=== PATIENT | male | born 1960 | race Caucasian/White ===

== ENCOUNTER → 2017-02-10 | Outpatient (CLI) | payer OTHER ==
[2017-02-10 17:54] LABS: ALT 38 U/L (21-72); AST 21 U/L (17-59); Alkaline Phosphatase 58 U/L (38-126); Anion Gap 9 mmol/L; Blood Urea Nitrogen 19 mg/dL (9-20); Calcium 9.1 mg/dL (8.4-10.2); Carbon Dioxide 27 mmol/L (22-30); Chloride 98 mmol/L (98-107); Cholesterol 199 mg/dL (<200); Glucose 178 mg/dL (74-99); HDL Cholesterol 61 mg/dL (40-60); Non-African American GFR(MDRD) >60 (>60 ml/min/1.73 sqM); Potassium 4.1 mmol/L (3.5-5.1); Sodium 134 mmol/L (137-145); Total Bilirubin 0.7 mg/dL (0.2-1.3); Total Protein 6.9 g/dL (6.3-8.2)
[2017-02-11 01:11] LABS: Urine Creatinine 54.1 mg/dL
== END | disposition home or self-care (01) ==
LOC: LABWHC1 16:58
PROVIDERS: ATTEND Internal Medicine Endocrinology, Diabetes & Metabolism
DX: E11.65 Type 2 diabetes mellitus with hyperglycemia (principal)
CPT/HCPCS: 36415; 80053; 80061; 82043; 82570; 84443; 84681

== ENCOUNTER → 2017-11-14 | Outpatient (CLI) | payer OTHER ==
[2017-11-14 09:43] LABS: ALT 53 U/L (21-72); AST 25 U/L (17-59); Albumin 4.7 g/dL (3.5-5.0); Alkaline Phosphatase 43 U/L (38-126); Anion Gap 12 mmol/L; Blood Urea Nitrogen 21 mg/dL (9-20); Calcium 9.2 mg/dL (8.4-10.2); Carbon Dioxide 24 mmol/L (22-30); Chloride 102 mmol/L (98-107); Cholesterol 175 mg/dL (<200); Glucose 184 mg/dL (74-99); HDL Cholesterol 62 mg/dL (40-60); LDL Cholesterol,Calculated 99 mg/dL (0-99); Potassium 4.6 mmol/L (3.5-5.1); Sodium 138 mmol/L (137-145); Total Protein 7.2 g/dL (6.3-8.2); Triglycerides 69 mg/dL (<150)
[2017-11-14 19:18] LABS: Hemoglobin A1C 8.1 % (4.0-6.0)
== END | disposition home or self-care (01) ==
LOC: LABWHC1 08:03
PROVIDERS: ATTEND Internal Medicine Endocrinology, Diabetes & Metabolism
DX: E11.65 Type 2 diabetes mellitus with hyperglycemia (principal)
CPT/HCPCS: 36415; 80053; 80061; 82043; 82570; 83036; 84681

== ENCOUNTER 2021-12-01 07:28 | Inpatient (IN) | payer BC, OTHER ==
[2021-12-01] MEDS ORDERED: ASPIRIN 81 MG PO STA (07:40)
[2021-12-01] MEDS ORDERED: NITROGLYCERIN SL TABS 0.4 MG TAB SUBLINGUAL STA (07:40)
[2021-12-01] MEDS ORDERED: NITROGLYCERIN OINT 1 INCH/GM PACKET TOPICAL STA (07:40)
[2021-12-01] MEDS ORDERED: LORazepam 2 MG/ML INJ IV STA (07:45)
--- NOTE | 2021-12-01 07:53 | ED ---
General Adult HPI - General Chief complaint: Chest Pain Stated complaint: Chest Pressure, SOB Time Seen by Provider: 12/01/21 07:30 Source: patient, RN notes reviewed, old records reviewed Mode of arrival: ambulatory Limitations: no limitations - History of Present Illness Initial comments: This is a 61-year-old male who presents emergency department with past medical history significant for diabetes and has a family history for heart disease. Patient comes in stating he's been having intermittent chest pain all week it's a squeezing tightness in the center of his chest hasn't lasted that long until last night. Patient states he woke up a couple times with this significant tightness and then when he woke up at 7:00 it was more significant and it is still ongoing. Patient denies any radiation of the pain. Patient denies any shortness of breath or difficulty breathing. Patient denies any diaphoretic episodes. Patient has any nausea. Patient denies any abdominal pain. Patient states took Tums and it had no effect. Patient denies any recent fever chills or cough per patient denies any similar episodes in the past. - Related Data Allergies Allergy/AdvReac Type Severity Reaction Status Date / Time No Known Allergies Allergy Verified 12/01/21 07:33 Review of Systems ROS Statement: Those systems with pertinent positive or pertinent negative responses have been documented in the HPI. ROS Other: All systems not noted in ROS Statement are negative. Past Medical History Past Medical History: Diabetes Mellitus History of Any Multi-Drug Resistant Organisms: None Reported Past Surgical History: Orthopedic Surgery Additional Past Surgical History / Comment(s): elbow Past Psychological History: No Psychological Hx Reported Smoking Status: Former smoker Past Alcohol Use History: None Reported Past Drug Use History: None Reported General Exam - General Exam Comments Initial Comments: GENERAL: Patient is well-developed and well-nourished. Patient is nontoxic and well- hydrated and is in mild distress. ENT: Neck is soft and supple. No significant lymphadenopathy is noted. Oropharynx is clear. Moist mucous membranes. Neck has full range of motion without eliciting any pain. EYES: The sclera were anicteric and conjunctiva were pink and moist. Extraocular movements were intact and pupils were equal round and reactive to light. Eyelids were unremarkable. PULMONARY: Unlabored respirations. Good breath sounds bilaterally. No audible rales rhonchi or wheezing was noted. CARDIOVASCULAR: There is a regular rate and rhythm without any murmurs gallops or rubs. ABDOMEN: Soft and nontender with normal bowel sounds. SKIN: Skin is clear with no lesions or rashes and otherwise unremarkable. NEUROLOGIC: Patient is alert and oriented x3. Cranial nerves II through XII are grossly intact. Motor and sensory are also intact. Normal speech, volume and content. Symmetrical smile. MUSCULOSKELETAL: Normal extremities with adequate strength and full range of motion. LYMPHATICS: No significant lymphadenopathy is noted PSYCHIATRIC: Normal psychiatric evaluation. Limitations: no limitations Course Vital Signs 12/01/21 12/01/21 12/01/21 07:30 08:16 08:31 Temperature 98.1 F 98.1 F Pulse Rate 88 51 L 73 Respiratory 16 16 24 Rate Blood Pressure 162/101 112/75 129/84 O2 Sat by Pulse 96 96 97 Oximetry 12/01/21 12/01/21 08:41 08:49 Temperature Pulse Rate 41 L 73 Respiratory 22 18 Rate Blood Pressure 129/84 121/75 O2 Sat by Pulse 98 97 Oximetry Medical Decision Making - Medical Decision Making EKG shows sinus rhythm at 73 bpm IA interval 248 QRS is 96 QT interval 352 QTC is 377 per patient's EKG shows no ST segment elevation or depression. Patient started having more symptoms became diaphoretic and a repeat EKG was done patient's EKG shows sinus bradycardia at 42 bpm IA interval 160 QRS is 102 QT interval 420 QTC is 359. Patient's EKG showed ST segment elevation in precordial leads V1 through V5 as well as 1 and aVL. Immediately after this EKG a STEMI was called. Dr. Gray came to the emergency department and saw the p atient personally. A repeat EKG was done shows sinus rhythm at 74 bpm IA interval 153 QRSs 120 QT i ntervals 369 QTC is 396. Patient's EKG continues to show ST segment elevation in precordial leads V1 through V5 in [address] segment depression in II, III, and F aVF. Patient was given heparin bolus emergency department as well as Lipitor multiple doses of nitroglycerin and then started on nitroglycerin drip. Patient's pain remained at 10 and patient was given Dilaudid 0.5 mg 2. I spoke with Dr. carvajal he agreed to admit the patient admitted the patient wrote admitting orders. - Lab Data Result diagrams: 12/01/21 07:49 07/03/22 07:49 Lab Results 12/01/21 12/01/21 12/01/21 Range/Units 07:49 07:49 07:49 WBC 7.8 (3.8-10.6) k/uL RBC 6.10 H (4.30-5.90) m/uL Hgb 20.0 H* (13.0-17.5) gm/dL Hct 57.8 H* (39.0-53.0) % MCV 94.8 (80.0-100.0) fL MCH 32.8 (25.0-35.0) pg MCHC 34.6 (31.0-37.0) g/dL RDW 12.5 (11.5-15.5) % Plt Count 181 (150-450) k/uL MPV 6.3 Neutrophils % 68 % Lymphocytes % 19 % Monocytes % 7 % Eosinophils % 2 % Basophils % 1 % Neutrophils # 5.3 (1.3-7.7) k/uL Lymphocytes # 1.5 (1.0-4.8) k/uL Monocytes # 0.5 (0-1.0) k/uL Eosinophils # 0.2 (0-0.7) k/uL Basophils # 0.0 (0-0.2) k/uL Sodium 136 L (137-145) mmol/L Potassium 4.4 (3.5-5.1) mmol/L Chloride 101 (98-107) mmol/L Carbon Dioxide 26 (22-30) mmol/L Anion Gap 9 mmol/L BUN 15 (9-20) mg/dL Creatinine 1.06 (0.66-1.25) mg/dL Est GFR (CKD-EPI)AfAm 88 (>60 ml/min/1.73 sqM) Est GFR (CKD-EPI)NonAf 76 (>60 ml/min/1.73 sqM) Glucose 239 H (74-99) mg/dL Calcium 9.1 (8.4-10.2) mg/dL Magnesium 2.0 (1.6-2.3) mg/dL Total Bilirubin 1.0 (0.2-1.3) mg/dL AST 23 (17-59) U/L ALT 28 (4-49) U/L Alkaline Phosphatase 52 (38-126) U/L Troponin I 0.222 H* (0.000-0.034) ng/mL Total Protein 7.4 (6.3-8.2) g/dL Albumin 4.5 (3.5-5.0) g/dL Critical Care Time Critical Care Time: Yes Total Critical Care Time: 45 Disposition Clinical Impression: ST elevation myocardial infarction (STEMI) Disposition: ADMITTED IP TO THIS [facility] Time of Disposition: 09:49
[2021-12-01 08:03] LABS: Basophils % (A) 1 %; Eosinophils # (A) 0.2 k/uL (0-0.7); Eosinophils % (A) 2 %; Lymphocytes # (A) 1.5 k/uL (1.0-4.8); Lymphocytes % (A) 19 %; MCH 32.8 pg (25.0-35.0); MCHC 34.6 g/dL (31.0-37.0); MCV 94.8 fL (80.0-100.0); Mean Platelet Volume 6.3; Monocytes # (A) 0.5 k/uL (0-1.0); Monocytes % (A) 7 %; Neutrophils # (A) 5.3 k/uL (1.3-7.7); Neutrophils % (A) 68 %; Platelet Count 181 k/uL (150-450); RDW 12.5 % (11.5-15.5); WBC 7.8 k/uL (3.8-10.6)
[2021-12-01 08:07] LABS: HCT 57.8 % (39.0-53.0)
[2021-12-01 08:10] LABS: Albumin 4.5 g/dL (3.5-5.0); Calcium 9.1 mg/dL (8.4-10.2); Potassium 4.4 mmol/L (3.5-5.1); Total Protein 7.4 g/dL (6.3-8.2)
--- NOTE | 2021-12-01 08:18 | XR ---
EXAMINATION TYPE: XR chest 2V DATE OF EXAM: 12/01/2021 7:54 AM COMPARISON: Chest radiographs from TECHNIQUE: XR chest 2V Frontal and lateral views of the chest. CLINICAL INDICATION:Male, 61 years old with history of Chest Pain; FINDINGS: Lungs/Pleura: There is no evidence of pleural effusion, focal consolidation, or pneumothorax. Pulmonary vascularity: Unremarkable. Heart/mediastinum: Cardiomediastinal silhouette is unremarkable. Musculoskeletal: No acute osseous pathology. IMPRESSION: No acute cardiopulmonary disease/process.
[2021-12-01] MEDS ORDERED: SODIUM CHLORIDE 0.9% 1,000 ML IV STA (08:29)
[2021-12-01] MEDS ORDERED: ATORVASTATIN 80 MG TAB PO STA (08:30)
[2021-12-01] MEDS ORDERED: HEPARIN SODIUM 1,000 UN/ML (10ML VL) IV ONE (08:30)
[2021-12-01] MEDS: HYDROmorphone 0.5 MG/0.5 ML SYRINGE IVP STA ×2 (08:37→08:47)
[2021-12-01] MEDS ORDERED: NITROGLYCERIN SL TABS 0.4 MG TAB SUBLINGUAL PRN ×2 (08:39→10:31)
[2021-12-01] MEDS ORDERED: NITROGLYCERIN-D5W PMX 50 MG in DEXTROSE/WATER 1 250ML.BAG IV ONE (08:45)
[2021-12-01] MEDS ORDERED: IV FLUID CONTINUATION 1,000 ML IV ONE (08:55)
[2021-12-01] MEDS ORDERED: VERAPAMIL 2.5 MG/ML 2 ML AMP ONE (09:03)
[2021-12-01] MEDS ORDERED: fentaNYL (PF) 50 MCG/ML 2 ML AMP ONE (09:03)
[2021-12-01] MEDS ORDERED: fentaNYL (PF) 50 MCG/ML 2 ML AMP IV ONE (09:04)
[2021-12-01] MEDS ORDERED: LIDOCAINE 1% INJ 10MG/ML (5 ML VIAL-PF) SQ ONE (09:05)
[2021-12-01] MEDS ORDERED: VERAPAMIL SYRINGE (5 MG/10 ML) INTRAARTER ONE (09:07)
[2021-12-01] MEDS ORDERED: HEPARIN SODIUM 1,000 UN/ML (10ML VL) ONE (09:10)
[2021-12-01] MEDS: HEPARIN SODIUM 1,000 UN/ML (10ML VL) IV ONE ×2 (09:11→09:25)
[2021-12-01] MEDS ORDERED: PRASUGREL 10 MG TAB PO ONE (09:21)
[2021-12-01] MEDS ORDERED: IOPAMIDOL-370 125ML BTL INJ ONE (09:30)
[2021-12-01] MEDS ORDERED: IOPAMIDOL-370 100ML BTL INJ ONE (09:49)
[2021-12-01 10:08] LABS: Glucose,Whole Blood 238 mg/dL (70-110)
[2021-12-01] MEDS ORDERED: ZOLPIDEM 5 MG TAB PO PRN (10:31)
[2021-12-01] MEDS ORDERED: RX INFO: IV CONTRAST WAS GIVEN 1 EACH MISC MISCELLANE PRN (10:31)
[2021-12-01] MEDS ORDERED: ATROPINE SULFATE 0.1 MG/ML 10ML SYRINGE IV PRN (10:31)
[2021-12-01] MEDS ORDERED: MAG HYDROX/AL HYDROX/SIMETH 30 ML CUP PO PRN (10:31)
--- NOTE | 2021-12-01 10:43 | P.CRDCN ---
History of Present Illness Consult date: 12/01/21 History of present illness: History of Present Illness: The patient is a 61-year-old male with a known history of diabetes who has been complaining of chest discomfort on and off for the last week. Resented to the emergency room with severe discomfort, initial EKG showed no significant changes, shortly after he had further pain and his EKG showed ST elevation in the anterior leads consistent with anterior wall myocardial infarction. The patient is active physically and has no documented history of exertional chest comfort or dyspnea. He denies any dizziness, palpitations or syncope. He denies any PND, orthopnea or peripheral edema. He has no recent cardiac workup. He scores factors are positive for diabetes, he is a nonsmoker, no hypertension or hyperlipidemia. Review of Systems: Respiratory: No history of asthma, bronchitis or recent cough. GI: No nausea or vomiting . No history of peptic ulcer disease. No recent GI bleed. : No hematuria or dysuria. Nervous System: No stroke or seizure. Physical Examination: 61-year-old male in moderate severe discomfort,Blood pressure 100/60, Heart rate 70 Head: Normocephalic. Eyes: Sclerae nonicteric. Neck: Good carotid upstroke, no bruit, no jugular venous distention. Lungs: Clear to auscultation. Heart: Regular rate and rhythm, S1-S2, no S3, no rub. No murmur. Abdomen: Soft nontender, positive bowel sounds no organomegaly. Extremities: No edema, intact distal pulses. Labs: Hemoglobin 20, white blood cell 7.8, platelets count 181,000. Potassium 4.4, BUN 15, creatinine 1.06. Troponin 0.22. EKG: Sinus mechanism with significant ST segment elevation anteriorly Impression: 1. Acute into wall myocardial infarction 2. History of diabetes 3. Elevated hemoglobin, etiology unclear Plan: 1. Proceed with emergent cardiac catheterization, risks and complications were discussed with the patient. He is in full understanding and agreement 2. Obtain an echocardiogram with Doppler 3. Follow hemoglobin 4. Depending on the results of his cardiac catheterization further recommendations will be made 5. Thank you for this consult we will follow with you Past Medical History Past Medical History: Diabetes Mellitus History of Any Multi-Drug Resistant Organisms: None Reported Past Surgical History: Orthopedic Surgery Additional Past Surgical History / Comment(s): elbow Past Psychological History: No Psychological Hx Reported Smoking Status: Former smoker Past Alcohol Use History: None Reported Past Drug Use History: None Reported Medications and Allergies Allergies Allergy/AdvReac Type Severity Reaction Status Date / Time No Known Allergies Allergy Verified 12/01/21 07:33 Physical Exam Vitals: Vital Signs Temp Pulse Resp BP Pulse Ox 12/01/21 10:20 92 8 L 107/58 91 L 12/01/21 10:10 97.5 F L 81 14 99/75 95 12/01/21 10:07 81 20 12/01/21 08:50 98.1 F 73 18 121/75 97 12/01/21 08:49 73 18 121/75 97 12/01/21 08:41 41 L 22 129/84 98 12/01/21 08:31 73 24 129/84 97 12/01/21 08:16 98.1 F 51 L 16 112/75 96 12/01/21 07:30 98.1 F 88 16 162/101 96 Intake and Output 11/30/21 12/01/21 12/01/21 22:59 06:59 14:59 Intake Total 175 Output Total 0 Balance 175 Intake: IV 175 Output: Urine 0 Other: # Voids 0 Weight 95.254 kg Results 12/01/21 07:49 12/01/21 07:49 Cardiac Enzymes 12/01/21 12/01/21 Range/Units 07:49 07:49 AST 23 (17-59) U/L Troponin I 0.222 H* (0.000-0.034) ng/mL CBC 12/01/21 Range/Units 07:49 WBC 7.8 (3.8-10.6) k/uL RBC 6.10 H (4.30-5.90) m/uL Hgb 20.0 H* (13.0-17.5) gm/dL Hct 57.8 H* (39.0-53.0) % Plt Count 181 (150-450) k/uL Comprehensive Metabolic Panel 12/01/21 Range/Units 07:49 Sodium 136 L (137-145) mmol/L Potassium 4.4 (3.5-5.1) mmol/L Chloride 101 (98-107) mmol/L Carbon Dioxide 26 (22-30) mmol/L BUN 15 (9-20) mg/dL Creatinine 1.06 (0.66-1.25) mg/dL Glucose 239 H (74-99) mg/dL Calcium 9.1 (8.4-10.2) mg/dL AST 23 (17-59) U/L ALT 28 (4-49) U/L Alkaline Phosphatase 52 (38-126) U/L Total Protein 7.4 (6.3-8.2) g/dL Albumin 4.5 (3.5-5.0) g/dL Current Medications Generic Name Dose Route Start Last Admin Trade Name Freq PRN Reason Stop Dose Admin Al Hydroxide/Mg Hydroxide 30 ml 12/01/21 10:31 Mag Hydrox/Al Hydrox/Simeth 30 Ml Cup PO Q4HR PRN Heartburn Aspirin 81 mg 12/02/21 09:00 Aspirin 81 Mg PO DAILY [facility] Atorvastatin Calcium 80 mg 12/01/21 21:00 Atorvastatin 80 Mg Tab PO HS [facility] Atropine Sulfate 0.5 mg 12/01/21 10:31 Atropine Sulfate 0.1 Mg/Ml 10ml Syringe IV ONCE PRN Symptomatic Bradycardia Sodium Chloride 1,000 ml/ IV 1,000 mls @ 95.254 mls/hr 12/01/21 10:45 Solution IV 12/01/21 14:46 .[id number] RACHEL 1 ML/KG/HR Lisinopril 2.5 mg 12/02/21 09:00 Lisinopril 10 Mg Tab PO DAILY [facility] Metoprolol Tartrate 25 mg 12/01/21 21:00 Metoprolol Tartrate 25 Mg Tab PO BID [facility] Miscellaneous Information 1 each 12/01/21 10:31 Rx Info: Iv Contrast Was Given 1 Each Misc MISCELLANE 12/03/21 10:31 DAILY PRN Per Protocol Nitroglycerin 0.4 mg 12/01/21 08:39 12/01/21 08:40 Nitroglycerin Sl Tabs 0.4 Mg Tab SUBLINGUAL 0.4 mg Q5M PRN Administration Chest Pain Nitroglycerin 0.4 mg 12/01/21 10:31 Nitroglycerin Sl Tabs 0.4 Mg Tab SUBLINGUAL Q5M PRN Chest Pain Prasugrel 10 mg 12/02/21 09:00 Prasugrel 10 Mg Tab PO DAILY [facility] Protocol Spironolactone 25 mg 12/02/21 09:00 Spironolactone 25 Mg Tab PO DAILY [facility] Zolpidem Tartrate 5 mg 12/01/21 10:31 Zolpidem 5 Mg Tab PO HS PRN Insomnia Intake and Output 11/30/21 12/01/21 12/01/21 22:59 06:59 14:59 Intake Total 175 Output Total 0 Balance 175 Intake: IV 175 Output: Urine 0 Other: # Voids 0 Weight 95.254 kg Patient Weight 12/02/21 06:59 Weight 95.254 kg 12/01/21 07:49 12/01/21 07:49
[2021-12-01] MEDS ORDERED: SODIUM CHLORIDE 0.9% 1,000 ML in EMPTY BAG 1 BAG IV SCH (10:45)
--- NOTE | 2021-12-01 10:51 | P.CARDCATH ---
Date of Procedure: 12/01/21 Description of Procedure: Cardiac Catheterization: The patient is a 61-year-old male who presented with an acute anterior wall myocardial infarction. Recommendations were made regarding cardiac catheterization, the risks and the complications were discussed with the patient who is in full understanding and agreement. 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 Using Xylocaine Anesthesia and Seldinger technique, a 6-Sudanese sheath was introduced in the right radial artery . Subsequently, selective coronary angiography was performed using a 6-Sudanese 3.5 bend left Parag guiding catheter and 5-Sudanese 3.5 bend right Parag diagnostic catheter. Multiple views of the coronary artery including hemiaxial views were obtained. After performing angioplasty and stenting of the LAD The 5-Sudanese pigtail catheter was used to cross the aortic valve and LVEDP was calculated. Following that, catheter and sheath were removed. Hemostasis was obtained with deployment of TR band . There was no immediate complication. Patient was returned to room in stable condition. Of note, the patient received a total of 7000 units of intravenous heparin as well as intra-arterial verapamil. There was no immediate complications. He received a loading dose of Effient, his ACT was followed. He had resolution of his chest discomfort and improvement of his EKG and the procedure. Findings: Left main: Short sized vessel bifurcating to left circumflex and LAD, left main has no high-grade stenosis LAD: This vessel is totally occluded proximally with no significant antegrade flow Left circumflex: This is a large dominant vessel, giving rise to a large proximal OM and distally to PDA and PLV, the left circumflex has no high-grade stenosis RCA: This is a small nondominant vessel with no high-grade stenosis Left Ventriculogram: Was not performed Hemodynamics: There was no gradient across the aortic valve, LVEDP 5-8 mmHg Angioplasty: Using the 6-Sudanese 3.5 left Parag guiding catheter and after cannulating the left main a 0.014 BMW wire was introduced across the total occlusion and positioned distally, subsequently 2.5 x 12 mm NC Treck balloon was advanced and one inflation was done after removing the balloon 3.5 x 18 mm Xience ricardo point stent was advanced, deployed and dilated at 16 ricardo. After removing the balloon a 4.0X12 mm NC Treck was advanced and when inflation at 10 ricardo was done. After the last inflation and after appropriate wait the balloon and the wire were withdrawn back in the guiding catheter, images were obtained and repeated and revealed successful stenting. Subsequently imaging of the right system and pressure were obtained. Conclusion: 1. Acutely occluded proximal LAD 2. Successful stenting of the proximal LAD with reduction of the stenosis from 100% to 0% 3. Left dominance Recommendations: The patient will continue on Effient and aspirin for 1 year without interruption, aggressive coronary risk modifications will be done. The findings and recommendations were discussed with the patient and his family and they are in full understanding and agreement. Duration of sedation is 37 minutes.
[2021-12-01 11:46] LABS: Glucose,Whole Blood 240 mg/dL (70-110)
--- NOTE | 2021-12-01 14:56 | P.HPIM ---
History of Present Illness This is a pleasant 61 years old male with past medical history of diabetes mellitus on insulin. Presents with chest pain. Patient says that is been having chest pain on on off for more than a week and felt like indigestion for the patient, central, nonradiating however last night and become more frequent and clearly this morning around 7 AM it woke him up from sleep more severe sequelae is in pain about 10/10 3 decided to come to emergency room. In the emergency room patient was found to have anterior STEMI and he went into emergent cardiac cath where stent was placed in the LAD. After the procedure patient was seen in the ICU Embedded feeling comfortable with no pain. No other complaints. Vitals stable. WBC 7.8, hemoglobin 20. D-dimer 1.2 BMP and liver enzymes are unremarkable. Troponin elevated up to 5.5. Chest x-ray: No acute process. Review of Systems CONSTITUTIONAL: No fever, no malaise, no fatigue. HEENT: No recent visual problems or hearing problems. Denied any sore throat. CARDIOVASCULAR: No orthopnea, PND, no palpitations, no syncope. PULMONARY: No shortness of breath, no cough, no hemoptysis. GASTROINTESTINAL: No diarrhea, no nausea, no vomiting, no abdominal pain. Normoactive bowel sounds. NEUROLOGICAL: No headaches, no weakness, no numbness. HEMATOLOGICAL: Denies any bleeding or petechiae. GENITOURINARY: Denies any burning micturition, frequency, or urgency. MUSCULOSKELETAL/RHEUMATOLOGICAL: Denies any joint pain, swelling, or any muscle pain. ENDOCRINE: Denies any polyuria or polydipsia. Past Medical History Past Medical History: Diabetes Mellitus History of Any Multi-Drug Resistant Organisms: None Reported Past Surgical History: Orthopedic Surgery Additional Past Surgical History / Comment(s): elbow Past Psychological History: No Psychological Hx Reported Smoking Status: Former smoker Past Alcohol Use History: None Reported Past Drug Use History: None Reported Medications and Allergies Home Medications Medication Instructions Recorded Confirmed Type Insulin Glargine,Hum.rec.anlog 10 units SQ DAILY 12/01/21 12/01/21 History [Lantus Solostar Pen] Multivitamins, Thera [Multivitamin 1 tab PO DAILY 12/01/21 12/01/21 History (formulary)] Allergies Allergy/AdvReac Type Severity Reaction Status Date / Time No Known Allergies Allergy Verified 12/01/21 12:08 Physical Exam Vitals: Vital Signs Temp Pulse Resp BP Pulse Ox 12/01/21 10:20 92 8 L 107/58 91 L 12/01/21 10:10 97.5 F L 81 14 99/75 95 12/01/21 10:07 81 20 12/01/21 08:50 98.1 F 73 18 121/75 97 12/01/21 08:49 73 18 121/75 97 12/01/21 08:41 41 L 22 129/84 98 12/01/21 08:31 73 24 129/84 97 12/01/21 08:16 98.1 F 51 L 16 112/75 96 12/01/21 07:30 98.1 F 88 16 162/101 96 Intake and Output 11/30/21 12/01/21 12/01/21 22:59 06:59 14:59 Intake Total 175 Output Total 0 Balance 175 Intake: IV 175 Output: Urine 0 Other: # Voids 0 Weight 95.254 kg GENERAL: The patient is alert and oriented x3, not in any acute distress. Well developed, well nourished. HEENT: Pupils are round and equally reacting to light. EOMI. No scleral icterus. No conjunctival pallor. Normocephalic, atraumatic. No pharyngeal erythema. No thyromegaly. CARDIOVASCULAR: S1 and S2 present. No murmurs, rubs, or gallops. PULMONARY: Chest is clear to auscultation, no wheezing or crackles. ABDOMEN: Soft, nontender, nondistended, normoactive bowel sounds. No palpable organomegaly. MUSCULOSKELETAL: No joint swelling or deformity. EXTREMITIES: No cyanosis, clubbing, or pedal edema. NEUROLOGICAL: Gross neurological examination did not reveal any focal deficits. SKIN: No rashes. No petechiae Results CBC & Chem 7: 12/01/21 07:49 12/01/21 07:49 Labs: Abnormal Lab Results - Last 24 Hours (Table) 12/01/21 12/01/21 12/01/21 Range/Units 07:49 07:49 07:49 RBC 6.10 H (4.30-5.90) m/uL Hgb 20.0 H* (13.0-17.5) gm/dL Hct 57.8 H* (39.0-53.0) % Sodium 136 L (137-145) mmol/L Glucose 239 H (74-99) mg/dL POC Glucose (mg/dL) (70-110) mg/dL Troponin I 0.222 H* (0.000-0.034) ng/mL 12/01/21 Range/Units 10:07 RBC (4.30-5.90) m/uL Hgb (13.0-17.5) gm/dL Hct (39.0-53.0) % Sodium (137-145) mmol/L Glucose (74-99) mg/dL POC Glucose (mg/dL) 238 H (70-110) mg/dL Troponin I (0.000-0.034) ng/mL Assessment and Plan Assessment: Acute anterior myocardial infarction, status post PCI to proximal LAD Diabetes mellitus Plan: This is a pleasant 61 years old male status post stent into LAD Continue with aspirin and effient Continue with metoprolol, lisinopril Continue with statin Cardiology consult Labs and medication were reviewed.. Continue same treatment. Continue with symptomatic treatment. Resume home medication. Monitor lytes and vitals. DVT and GI prophylaxis. Further recommendations as per clinical course of the patient DVT prophylaxis: Subcutaneous heparin GI Prophylaxis: Pepcid
[2021-12-01 17:07] LABS: Glucose,Whole Blood 261 mg/dL (70-110)
[2021-12-01] MEDS: INSULIN ASPART (NovoLOG) 100 UNIT/ML VIAL SQ SCH ×2 (17:25→20:22)
[2021-12-01 18:36] LABS: HDL Cholesterol 37.2 mg/dL (40.00-60.00); Triglycerides 35.4 mg/dL (0.00-149.00)
[2021-12-01 18:55] LABS: Chol/HDL Ratio 3.9 Ratio; LDL Cholesterol,Direct Reflex 96.8 mg/dL (0.00-129.00)
[2021-12-01 20:00] LABS: Glucose,Whole Blood 285 mg/dL (70-110)
[2021-12-01] MEDS: ATORVASTATIN 80 MG TAB PO SCH (20:21)
[2021-12-01] MEDS: HEPARIN SODIUM,PORCINE/PF 5,000 UNIT/0.5 ML SYRINGE SQ SCH (20:21)
[2021-12-01] MEDS: METOPROLOL TARTRATE 25 MG TAB PO SCH (20:22)
[2021-12-01] MEDS: FAMOTIDINE 20 MG/2 ML VIAL IV SCH (20:22)
[2021-12-02 06:59] LABS: Glucose,Whole Blood 150 mg/dL (70-110)
[2021-12-02] MEDS: INSULIN ASPART (NovoLOG) 100 UNIT/ML VIAL SQ SCH ×4 (07:13→20:21)
[2021-12-02 07:16] LABS: HCT 51.6 % (39.0-53.0); HGB 18.1 gm/dL (13.0-17.5); MCH 33.4 pg (25.0-35.0); MCHC 35.1 g/dL (31.0-37.0); MCV 95.1 fL (80.0-100.0); Mean Platelet Volume 6.7; Platelet Count 171 k/uL (150-450); RBC 5.42 m/uL (4.30-5.90); RDW 12.3 % (11.5-15.5); WBC 12.4 k/uL (3.8-10.6)
[2021-12-02 07:32] LABS: African American GFR (CKD) >90 (>60 ml/min/1.73 sqM); Anion Gap 4 mmol/L; Blood Urea Nitrogen 15 mg/dL (9-20); Calcium 8.2 mg/dL (8.4-10.2); Carbon Dioxide 26 mmol/L (22-30); Chloride 104 mmol/L (98-107); Glucose 163 mg/dL (74-99); Non-African American GFR(CKD) 79 (>60 ml/min/1.73 sqM); Potassium 4.3 mmol/L (3.5-5.1); Sodium 134 mmol/L (137-145)
[2021-12-02] MEDS: ASPIRIN 81 MG PO SCH (07:59)
[2021-12-02] MEDS: HEPARIN SODIUM,PORCINE/PF 5,000 UNIT/0.5 ML SYRINGE SQ SCH ×2 (08:00→20:21)
[2021-12-02] MEDS: PRASUGREL 10 MG TAB PO SCH (08:00)
[2021-12-02] MEDS: FAMOTIDINE 20 MG/2 ML VIAL IV SCH (08:00)
[2021-12-02] MEDS: SPIRONOLACTONE 25 MG TAB PO SCH (08:00)
[2021-12-02] MEDS: METOPROLOL TARTRATE 25 MG TAB PO SCH ×2 (08:00→20:21)
--- NOTE | 2021-12-02 09:12 | P.PN ---
Subjective Progress Note Date: 12/02/21 PROGRESS NOTE The patient presented yesterday with an acute anterior myocardial infarction and totally occluded proximal LAD, underwent stenting of that vessel. He is doing well this morning, he denies any chest discomfort, dizziness or palpitations. He is in sinus mechanism and hemodynamically stable. He has no evidence of ventricular ectopic activity. He has been out of bed and felt well. He has no nausea or vomiting. Medications: Aspirin, Lipitor 80 mg daily, insulin, Zestril 2.5 milligrams twice a day, metoprolol tartrate 25 mg twice a day, Effient 10 mg daily, Aldactone 25 mg daily PHYSICAL EXAMINATION: Blood pressure 131/90 heart rate 87 LUNGS: [Clear to auscultation] HEART: [Regular rate and rhythm, S1, S2. No S3. No systolic murmur] ABDOMEN: [Soft, nontender, no organomegaly] EXTREMETIES: [No edema, right radial pulse intact] LAB: EKG shows sinus mechanism with biphasic T waves anteriorly. Troponin peak at 5.5, BUN 15, creatinine 1.02, potassium 4.3, hemoglobin down to 18.1 IMPRESSION: 1. Acute into myocardial infarction status post stenting of the proximal LAD 2. Diabetes PLAN: 1. Increase physical activity 2. Transfer to telemetry 3. Follow hemoglobin 4. Obtain an echocardiogram with Doppler 5. Probable discharge in 24 hours Objective - Vital Signs Vital signs: Vital Signs Temp 98.0 F 12/02/21 08:00 Pulse 87 12/02/21 08:00 Resp 11 L 12/02/21 08:00 BP 131/91 12/02/21 08:00 Pulse Ox 93 L 12/02/21 08:00 FiO2 Intake & Output 12/01/21 12/02/21 12/02/21 18:59 06:59 18:59 Intake Total 935 475 360 Output Total 600 300 0 Balance 335 175 360 Weight 95.254 kg Intake: IV 935 475 Sodium Chloride 0.9% 1, 760 475 000 ml In Empty Bag 1 bag @ 1 ML/KG/HR 95.254 mls/ hr IV .[id number] RACHEL Rx#: [id number] Oral 360 Output: Urine 600 300 0 Other: Voiding Method Urinal Urinal # Voids 0 0 0 - Labs CBC & Chem 7: 12/02/21 07:01 12/02/21 07:01 Labs: Abnormal Lab Results - Last 24 Hours (Table) 12/01/21 12/01/21 12/01/21 Range/Units 10:07 10:59 10:59 WBC (3.8-10.6) k/uL Hgb (13.0-17.5) gm/dL D-Dimer (<0.60) mg/L FEU Sodium (137-145) mmol/L Glucose (74-99) mg/dL POC Glucose (mg/dL) 238 H (70-110) mg/dL Calcium (8.4-10.2) mg/dL Troponin I 2.000 H* (0.000-0.034) ng/mL HDL Cholesterol 37.20 L (40.00-60.00) mg/dL 12/01/21 12/01/21 12/01/21 Range/Units 11:44 13:34 13:34 WBC (3.8-10.6) k/uL Hgb (13.0-17.5) gm/dL D-Dimer 1.23 H (<0.60) mg/L FEU Sodium (137-145) mmol/L Glucose (74-99) mg/dL POC Glucose (mg/dL) 240 H (70-110) mg/dL Calcium (8.4-10.2) mg/dL Troponin I 5.540 H* (0.000-0.034) ng/mL HDL Cholesterol (40.00-60.00) mg/dL 12/01/21 12/01/21 12/02/21 Range/Units 17:06 19:59 06:58 WBC (3.8-10.6) k/uL Hgb (13.0-17.5) gm/dL D-Dimer (<0.60) mg/L FEU Sodium (137-145) mmol/L Glucose (74-99) mg/dL POC Glucose (mg/dL) 261 H 285 H 150 H (70-110) mg/dL Calcium (8.4-10.2) mg/dL Troponin I (0.000-0.034) ng/mL HDL Cholesterol (40.00-60.00) mg/dL 12/02/21 12/02/21 Range/Units 07:01 07:01 WBC 12.4 H (3.8-10.6) k/uL Hgb 18.1 H (13.0-17.5) gm/dL D-Dimer (<0.60) mg/L FEU Sodium 134 L (137-145) mmol/L Glucose 163 H (74-99) mg/dL POC Glucose (mg/dL) (70-110) mg/dL Calcium 8.2 L (8.4-10.2) mg/dL Troponin I (0.000-0.034) ng/mL HDL Cholesterol (40.00-60.00) mg/dL
[2021-12-02 11:39] LABS: Glucose,Whole Blood 270 mg/dL (70-110)
[2021-12-02 16:52] LABS: Glucose,Whole Blood 300 mg/dL (70-110)
[2021-12-02] MEDS: FAMOTIDINE 20 MG TAB PO SCH (20:21)
[2021-12-02] MEDS: ATORVASTATIN 80 MG TAB PO SCH (20:21)
[2021-12-02 20:30] LABS: Glucose,Whole Blood 225 mg/dL (70-110)
--- NOTE | 2021-12-03 00:08 | P.PN ---
Subjective This is a pleasant 61 years old male with past medical history of diabetes mellitus on insulin. Presents with chest pain. Patient says that is been having chest pain on on off for more than a week and felt like indigestion for the patient, central, nonradiating however last night and become more frequent and clearly this morning around 7 AM it woke him up from sleep more severe sequelae is in pain about 10 3 decided to come to emergency room. In the emergency room patient was found to have anterior STEMI and he went into emergent cardiac cath where stent was placed in the LAD. After the procedure patient was seen in the ICU Embedded feeling comfortable with no pain. No other complaints. Vitals stable. WBC 7.8, hemoglobin 20. D-dimer 1.2 BMP and liver enzymes are unremarkable. Troponin elevated up to 5.5. Chest x-ray: No acute process. 12/03/2021 Patient denies any chest pain. However still needs to be monitored in the hospital Continue with telemetry Sugar is elevated and she was on Levemir 10 units at home, we will restart on 5 units daily since is also on diabetic diet. Importance of a testicular BX. WBC 12.4, hemoglobin 18.1, Echocardiogram pending Objective - Vital Signs Vital signs: Vital Signs Temp 98.1 F 12/02/21 11:19 Pulse 72 12/02/21 11:19 Resp 16 12/02/21 11:19 BP 131/84 12/02/21 11:19 Pulse Ox 97 12/02/21 11:19 FiO2 Intake & Output 12/01/21 12/02/21 12/02/21 18:59 06:59 18:59 Intake Total 935 475 360 Output Total 600 300 0 Balance 335 175 360 Weight 95.254 kg Intake: IV 935 475 Sodium Chloride 0.9% 1, 760 475 000 ml In Empty Bag 1 bag @ 1 ML/KG/HR 95.254 mls/ hr IV .[id number] [facility] Rx#: [id number] Oral 360 Output: Urine 600 300 0 Other: Voiding Method Urinal Urinal # Voids 0 0 0 - Exam GENERAL: The patient is alert and oriented x3, not in any acute distress. Well developed, well nourished. HEENT: Pupils are round and equally reacting to light. EOMI. No scleral icterus. No conjunctival pallor. Normocephalic, atraumatic. No pharyngeal erythema. No thyromegaly. CARDIOVASCULAR: S1 and S2 present. No murmurs, rubs, or gallops. PULMONARY: Chest is clear to auscultation, no wheezing or crackles. ABDOMEN: Soft, nontender, nondistended, normoactive bowel sounds. No palpable organomegaly. MUSCULOSKELETAL: No joint swelling or deformity. EXTREMITIES: No cyanosis, clubbing, or pedal edema. NEUROLOGICAL: Gross neurological examination did not reveal any focal deficits. SKIN: No rashes. no petechiae. - Labs CBC & Chem 7: 12/02/21 07:01 12/02/21 07:01 Labs: Abnormal Lab Results - Last 24 Hours (Table) 12/01/21 12/01/21 12/01/21 Range/Units 10:59 10:59 11:44 WBC (3.8-10.6) k/uL Hgb (13.0-17.5) gm/dL D-Dimer (<0.60) mg/L FEU Sodium (137-145) mmol/L Glucose (74-99) mg/dL POC Glucose (mg/dL) 240 H (70-110) mg/dL Calcium (8.4-10.2) mg/dL Troponin I 2.000 H* (0.000-0.034) ng/mL HDL Cholesterol 37.20 L (40.00-60.00) mg/dL 12/01/21 12/01/21 12/01/21 Range/Units 13:34 13:34 17:06 WBC (3.8-10.6) k/uL Hgb (13.0-17.5) gm/dL D-Dimer 1.23 H (<0.60) mg/L FEU Sodium (137-145) mmol/L Glucose (74-99) mg/dL POC Glucose (mg/dL) 261 H (70-110) mg/dL Calcium (8.4-10.2) mg/dL Troponin I 5.540 H* (0.000-0.034) ng/mL HDL Cholesterol (40.00-60.00) mg/dL 12/01/21 12/02/21 12/02/21 Range/Units 19:59 06:58 07:01 WBC 12.4 H (3.8-10.6) k/uL Hgb 18.1 H (13.0-17.5) gm/dL D-Dimer (<0.60) mg/L FEU Sodium (137-145) mmol/L Glucose (74-99) mg/dL POC Glucose (mg/dL) 285 H 150 H (70-110) mg/dL Calcium (8.4-10.2) mg/dL Troponin I (0.000-0.034) ng/mL HDL Cholesterol (40.00-60.00) mg/dL 12/02/21 Range/Units 07:01 WBC (3.8-10.6) k/uL Hgb (13.0-17.5) gm/dL D-Dimer (<0.60) mg/L FEU Sodium 134 L (137-145) mmol/L Glucose 163 H (74-99) mg/dL POC Glucose (mg/dL) (70-110) mg/dL Calcium 8.2 L (8.4-10.2) mg/dL Troponin I (0.000-0.034) ng/mL HDL Cholesterol (40.00-60.00) mg/dL Assessment and Plan Assessment: Acute anterior myocardial infarction, status post PCI to proximal LAD Diabetes mellitus Plan: This is a pleasant 61 years old male status post stent into LAD Continue with aspirin and effient Continue with metoprolol, lisinopril Continue with statin Cardiology consult Labs and medication were reviewed.. Continue same treatment. Continue with symptomatic treatment. Resume home medication. Monitor lytes and vitals. DVT and GI prophylaxis. Further recommendations as per clinical course of the patient DVT prophylaxis: Subcutaneous heparin GI Prophylaxis: Pepcid
[2021-12-03 05:31] VITALS: RESP 16; TEMP 98.3
[2021-12-03 06:21] LABS: Glucose,Whole Blood 225 mg/dL (70-110)
[2021-12-03] MEDS: INSULIN ASPART (NovoLOG) 100 UNIT/ML VIAL SQ SCH ×2 (06:23→12:28)
[2021-12-03] MEDS ORDERED: INSULIN DETEMIR (LEVEMIR) 100 UNIT/ML SYR SQ SCH (07:00)
[2021-12-03] MEDS ORDERED: INSULIN ASPART (NovoLOG) 100 UNIT/ML VIAL SQ SCH (07:30)
[2021-12-03 07:40] LABS: HCT 54.4 % (39.0-53.0); HGB 18.8 gm/dL (13.0-17.5); MCH 33.1 pg (25.0-35.0); MCHC 34.6 g/dL (31.0-37.0); MCV 95.5 fL (80.0-100.0); Mean Platelet Volume 6.5; Platelet Count 164 k/uL (150-450); RBC 5.69 m/uL (4.30-5.90); RDW 12.3 % (11.5-15.5); WBC 11.2 k/uL (3.8-10.6)
[2021-12-03 07:57] LABS: African American GFR (CKD) >90 (>60 ml/min/1.73 sqM); Anion Gap 5 mmol/L; Blood Urea Nitrogen 13 mg/dL (9-20); Calcium 8.3 mg/dL (8.4-10.2); Carbon Dioxide 25 mmol/L (22-30); Chloride 102 mmol/L (98-107); Glucose 199 mg/dL (74-99); Non-African American GFR(CKD) 78 (>60 ml/min/1.73 sqM); Potassium 4.5 mmol/L (3.5-5.1); Sodium 132 mmol/L (137-145)
[2021-12-03] MEDS: FAMOTIDINE 20 MG TAB PO SCH (09:35)
[2021-12-03] MEDS: ASPIRIN 81 MG PO SCH (09:35)
[2021-12-03] MEDS: PRASUGREL 10 MG TAB PO SCH (09:35)
[2021-12-03] MEDS: SPIRONOLACTONE 25 MG TAB PO SCH (09:35)
[2021-12-03] MEDS: HEPARIN SODIUM,PORCINE/PF 5,000 UNIT/0.5 ML SYRINGE SQ SCH (09:35)
[2021-12-03] MEDS: METOPROLOL TARTRATE 25 MG TAB PO SCH (09:35)
[2021-12-03 11:38] LABS: Glucose,Whole Blood 241 mg/dL (70-110)
[2021-12-03 12:28] VITALS: BP 108/70; PULSE 77
[2021-12-03 12:53] VITALS: BMI 29.2
--- NOTE | 2021-12-03 12:57 | P.PN ---
Subjective This is a 61 year old male with a past medical history of diabetes. Patient does not follow with a insurance law specialist. Patient presented to the emergency department with complaints of intermittent chest discomfort. EKG revealed ST elevation in anterior leads consistent with anterior wall myocardial infarction. Patient underwent cardiac catheter patient Dr. Gray which revealed acutely occluded proximal LAD. Patient underwent PCI to the LAD. Patient seen and examined at bedside, no acute distress. He denies any chest pain or shortness of breath. His vital signs are stable. No complaints. Ambulating in room and halls without difficulty. Echocardiogram reviewed at bedside by Dr. Newton, EF 45-50%. BUN 13, serum creatinine 1.03. Hemoglobin 18.8 GENERAL: Well-appearing, well-nourished and in no acute distress. NECK: Supple without JVD or thyromegaly. LUNGS: Breath sounds clear to auscultation bilaterally. Respiration equal and unlabored. No wheezes, rales or rhonchi. HEART: Regular rate and rhythm without murmurs, rubs or gallops. S1 and S2 heard. EXTREMITIES: Normal range of motion, no edema. No clubbing or cyanosis. Peripheral pulses intact. SKIN: Right radial cath site clean dry intact, no hematoma 2+ pulses ASSESSMENT Anterior STEMI s/p PCI to proximal LAD on 12/01/2021 History of Diabetes PLAN Continue dual antiplatelet therapy with aspirin and Effient for 12 months Continue statin, lisinopril, metoprolol tartrate, and spironolactone From a cardiology perspective, patient is stable to be discharged home today, follow up with Dr. Gray in 1 week. Nurse Practitioner note has been reviewed, I agree with a documented findings and plan of care. Patient was seen and examined. Objective - Vital Signs Vital signs: Vital Signs Temp 98.3 F 12/03/21 04:00 Pulse 77 12/03/21 12:27 Resp 16 12/03/21 12:27 BP 108/70 12/03/21 12:27 Pulse Ox 98 12/03/21 12:27 FiO2 Intake & Output 12/02/21 12/03/21 12/03/21 18:59 06:59 18:59 Intake Total 720 240 Output Total 0 Balance 720 240 Intake: Oral 720 240 Output: Urine 0 Other: Voiding Method Urinal Toilet # Voids 2 2 - Labs CBC & Chem 7: 12/03/21 06:47 07/05/22 06:47 Labs: Abnormal Lab Results - Last 24 Hours (Table) 12/02/21 12/02/21 12/03/21 Range/Units 16:40 20:18 06:19 WBC (3.8-10.6) k/uL Hgb (13.0-17.5) gm/dL Hct (39.0-53.0) % Sodium (137-145) mmol/L Glucose (74-99) mg/dL POC Glucose (mg/dL) 300 H 225 H 225 H (70-110) mg/dL Calcium (8.4-10.2) mg/dL 12/03/21 12/03/21 12/03/21 Range/Units 06:47 06:47 11:36 WBC 11.2 H (3.8-10.6) k/uL Hgb 18.8 H (13.0-17.5) gm/dL Hct 54.4 H (39.0-53.0) % Sodium 132 L (137-145) mmol/L Glucose 199 H (74-99) mg/dL POC Glucose (mg/dL) 241 H (70-110) mg/dL Calcium 8.3 L (8.4-10.2) mg/dL
--- NOTE | 2021-12-03 20:32 | P.DS ---
Providers Date of admission: 12/01/21 08:57 Attending physician: Ming Carpio Consults: 12/01/21 10:22 Consult Physician Routine Consulting Provider: Grayson Gray Consult Reason/Comments: stemi Do you want consulting provider notified?: Already Contacted 12/01/21 10:31 Consult Physician Routine Consulting Provider: Cardiology Mignon Consult Reason/Comments: Post Interventional Patient Do you want consulting provider notified?: Already Contacted Primary care physician: Stated None Hospital Course: Diagnoses: Acute anterior myocardial infarction, status post PCI to proximal LAD Diabetes mellitus Hospital course: This is a pleasant 61 years old male with past medical history of diabetes mellitus on insulin. Presents with chest pain. Patient says that is been having chest pain on on off for more than a week and felt like indigestion for the patient, central, nonradiating however last night and become more frequent and clearly this morning around 7 AM it woke him up from sleep . Patient found to have anterior STEMI underwent cardiac cath with magazine filler follow him closely. Stent placed in his proximal LAD After the procedure he was started on aspirin and effient, metoprolol, lisinopril and statin. Today is as symptomatic Patient was cleared for discharge by magazine filler Problems and management plan were discussed with the patient and he verbalized understanding and acceptance Patient was found stable and can be discharged home however he needs follow-up as an outpatient. Patient was instructed to follow up with PCP within one week and patient agrees Patient was instructed to follow up with magazine filler Dr. Gray in one week and he agrees Patient was instructed to follow up with photonics engineering technician Dr. Garcia for her hemoglobin level although it's is as symptomatic. He verbalized understanding and acceptance. He agrees to call and make his own appointment Physical exam Gen: patient is a AAOx3, no distress CVS: S1-S2, RRR, no murmur Lungs: B/L CTA, no wheezing Abdomen: soft, no distention, no tenderness, positive bowel sounds Extremity: no leg edema or induration Time spent more than 35 minutes Patient Condition at Discharge: Stable Plan - Discharge Summary Discharge Rx Participant: Yes New Discharge Prescriptions: New Aspirin 81 mg PO DAILY #90 tab Nitroglycerin Sl Tabs [Nitrostat] 0.4 mg SUBLINGUAL Q5M PRN #25 tab PRN Reason: Chest Pain Metoprolol Tartrate [Lopressor] 25 mg PO BID 30 Days #60 tab lisinopriL [Zestril] 2.5 mg PO DAILY #90 tab Prasugrel [Effient] 10 mg PO DAILY #90 tab Atorvastatin [Lipitor] 80 mg PO HS #90 tab Spironolactone [Aldactone] 25 mg PO DAILY #90 tab Continue Insulin Glargine,Hum.rec.anlog [Lantus Solostar Pen] 10 units SQ DAILY Discontinued Multivitamins, Thera [Multivitamin (formulary)] 1 tab PO DAILY Discharge Medication List Insulin Glargine,Hum.rec.anlog [Lantus Solostar Pen] 10 units SQ DAILY 12/01/21 [History] Aspirin 81 mg PO DAILY #90 tab 12/03/21 [Rx] Atorvastatin [Lipitor] 80 mg PO HS #90 tab 12/03/21 [Rx] Metoprolol Tartrate [Lopressor] 25 mg PO BID 30 Days #60 tab 12/03/21 [Rx] Nitroglycerin Sl Tabs [Nitrostat] 0.4 mg SUBLINGUAL Q5M PRN #25 tab 12/03/21 [Rx] Prasugrel [Effient] 10 mg PO DAILY #90 tab 12/03/21 [Rx] Spironolactone [Aldactone] 25 mg PO DAILY #90 tab 12/03/21 [Rx] lisinopriL [Zestril] 2.5 mg PO DAILY #90 tab 12/03/21 [Rx] Follow up Appointment(s)/Referral(s): Albino Garcia MD [STAFF PHYSICIAN] - 1 Week (blood disease doctor for your high hemoglobin level Spoke to legal receptionist, office will call with appointment time) Grayson Gray MD [STAFF PHYSICIAN] - 12/10/21 3:30 pm (Thursday) None,Stated [Primary Care Provider] - 1-2 days (Please find and make an appointment with PCP) Patient Instructions/Handouts: *Surgery [facility] - After Heart Catheterization - Chief Security Officer Instructions Activity/Diet/Wound Care/Special Instructions: heart healthy diet activity is restricted till you see your doctor we recommend to check your glucose 4 times a day before each meal and at bed time , keep the results in a log book and bring it to your doctor upon your appointment date if your glucose is less than 70 or more than 400 then call 911 and come to emergency room Cardiology Instructions After Cardiac Catheterization with Stent Placement: 1. Aspirin as anti-platelet therapy - Aspirin lessens the chance of heart attack and stroke. It helps prevent blood clots from forming, allowing the blood to flow more easily. Each day, you will take one 81 mg (non-enteric coated) tablet daily. You will be taking aspirin as a lifelong medication. Do not stop unless instructed by your doctor. 2. Anti-platelet Therapy. -In addition to aspirin, you will take ONE of the following anti-platelet medications daily. This will help prevent a clot from forming in your stent: Your medication = Effient (prasugrel) -You will need to take your anti-platelet medicine every day for 12 months -Please consult your heart doctor before you stop this medicine. -They may want you to continue for a longer period of time. 3. Statins -A statin medication lowers cholesterol levels in the blood. This helps slow the progression of heart disease. - Please take your statin medication as prescribed by your doctor. -You may be taking one of the following statins: Lipitor (atorvastatin) Other Medications: -ACEI/ Angiotensin II Receptor Elke (your medication: Lisinopril)- can help your heart work better after a heart attack and decrease the amount of damage from a heart attack -Beta elke. (your medication: metoprolol tartrate) Is a medication that protects your heart from stress and can prevent future heart attacks. It can slow your heart rate. It can take weeks for your body to get used to a beta elke. The dose may need to be changed a few times as your body adjusts -Spironolactone (Aldactone)- is a type of diuretic; it helps the body get rid of extra salt and fluid. However, it also helps the body hold onto potassium. Do not stop taking these medicines without talking to your doctor. -Take all other medicines as directed by your doctor. Do not take any extra aspirin or ibuprofen. They can increase your risk of bleeding. Many antq-ods-dtytyhg drugs contain aspirin. If you are unsure about what the drug contains, check with your pharmacist before taking it. -For mild discomfort, you may take plain Tylenol (acetaminophen). Follow dose directions, but do not take more than 4,000 mg of acetaminophen in 24 hours. Contact your doctor right away or go to the nearest hospital Emergency Room if you have: -Severe angina or chest pain. (This may be a sign of a problem with your stent.) -Excessive bruising, blood in urine/stool or black tarry stools. Healthy LifeStyle It is important to keep a heart healthy lifestyle. This can improve your long- term health and decrease your risk for heart attacks. -Managing your blood cholesterol, blood pressure, weight, and stress. -The importance of regular exercise. -Heart Healthy Diet: Include more plants in your diet. Eat lots of fresh vegetables and fresh fruits. Eat good fats: plant based oils, avocado, nuts, beans, legumes. Eat more seafood. Limit Meat. Switch to whole grains. -Avoid fried foods and animal fats and processed meats Recommend staying off work until you follow up with Dr. Gray Follow up with [facility] [place] [phone] Recommend to check her glucose 4 times a day, before each meal and at bedtime, give the results in a log book and bring it to your doctor on your appointment date if your glucose less than 70 or more than 400, then call 911 on come to emergency room Discharge Disposition: HOME SELF-CARE
--- NOTE | 2021-12-04 10:21 | CA ---
Transthoracic Echo Report Name: Jose Angel Gabriel Age: 61 Gender: M : 1960 Exam Date: 12/03/2021 09:31 Exam Location: [place] [facility] Ht (in): 64 Wt (lb): 210 Ordering Physician: Grayson Gray MD ([id number]) Attending/Referring Phys: Support Architect Mackenzie Currie, JUANITA Procedure CPT: Indications: ME Cardiac Hx: Technical Quality: Good Contrast 1: Total Dose (mL): Contrast 2: Total Dose (mL): MEASUREMENTS (Male / Female) Normal Values 2D ECHO LV Diastolic Diameter PLAX 5.0 cm 4.2 - 5.9 / 3.9 - 5.3 cm LV Systolic Diameter PLAX 3.2 cm IVS Diastolic Thickness 1.2 cm 0.6 - 1.0 / 0.6 - 0.9 cm LVPW Diastolic Thickness 1.3 cm 0.6 - 1.0 / 0.6 - 0.9 cm LV Relative Wall Thickness 0.5 LA Volume 55.7 cm??? 18 - 58 / 22 - 52 cm??? M-MODE Aortic Root Diameter MM 3.6 cm MV E Point Septal Separation 0.4 cm AV Cusp Separation MM 1.7 cm DOPPLER MV Area PHT 4.1 cm??? Mitral E Point Velocity 44.1 cm/s Mitral A Point Velocity 73.6 cm/s Mitral E to A Ratio 0.6 MV Deceleration Time 182.9 ms MV E' Velocity 5.3 cm/s Mitral E to MV E' Ratio 8.4 FINDINGS Left Ventricle Left ventricular ejection fraction is estimated at 50%. Right Ventricle Normal right ventricular size and function. Right ventricular systolic pressure within normal limits. Right Atrium Normal right atrial size. Left Atrium Normal left atrial size. Mitral Valve Structurally normal mitral valve. Aortic Valve Trileaflet aortic valve. Tricuspid Valve Structurally normal tricuspid valve. Pulmonic Valve Structurally normal pulmonic valve. Pericardium Normal pericardium. Aorta Normal size aortic root and proximal ascending aorta. CONCLUSIONS Low-normal left ventricular systolic function was EF of 50% Previewed by: Dr. Gadiel Castañeda MD (Electronically Signed) Final Date: 04 December 2021 10:20
== END 2021-12-03 15:42 | disposition home or self-care (01) | DRG 247 ==
LOC: EC 07:28 → 2SICU 08:57 → 3SCARD 12-02 10:59
PROVIDERS: ADMIT Hospitalist; ATTEND Hospitalist
PROC: 4A023N7 Measurement of Cardiac Sampling and Pressure, Left Heart, Percutaneous Approach (ICD-10-PCS; principal; 2021-12-01 08:48)
PROC: 027034Z Dilation of Coronary Artery, One Artery with Drug-eluting Intraluminal Device, Percutaneous Approach (ICD-10-PCS; principal; 2021-12-01 08:48)
PROC: B2111ZZ Fluoroscopy of Multiple Coronary Arteries using Low Osmolar Contrast (ICD-10-PCS; principal; 2021-12-01 08:48)
DX: I21.09 ST elevation (STEMI) myocardial infarction involving other coronary artery of anterior wall (principal); E11.9 Type 2 diabetes mellitus without complications; R00.1 Bradycardia, unspecified; D58.2 Other hemoglobinopathies; I25.10 Atherosclerotic heart disease of native coronary artery without angina pectoris; Z79.4 Long term (current) use of insulin; Z28.310 Unvaccinated for COVID-19; Z87.891 Personal history of nicotine dependence; Z82.49 Family history of ischemic heart disease and other diseases of the circulatory system
CPT/HCPCS: 36415; 71046; 80048; 80053; 80061; 83721; 83735; 84484; 85025; 85027; 85379; 93005; 93306; 93458; 96374; 96375; 99291